=== PATIENT | female | born 1950 | race Caucasian/White ===

== ENCOUNTER 2018-03-14 08:58 | Observation (INO) | payer MEDICARE ==
[~2018-03-14] VITALS: Ht 165.1 cm; Wt 152.3 kg
[2018-03-14 10:30] LABS: BASOPHILS ABSOLUTE AUTO 0.03 K/mm3 (0.00-0.23); BASOPHILS PERCENT AUTO 1 % (0-2); EOSINOPHILS ABSOLUTE AUTO 0.08 K/mm3 (0.00-0.68); EOSINOPHILS PERCENT AUTO 2 % (0-6); Hematocrit 38.4 % (33.0-51.0); Hemoglobin 11.8 g/dL (11.5-16.0); IMMATURE GRAN ABSOLUTE AUTO 0.01 K/mm3 (0.00-0.10); IMMATURE GRAN PERCENT AUTO 0 % (0-1); LYMPHOCYTES ABSOLUTE AUTO 0.45 K/mm3 (0.84-5.20); LYMPHOCYTES PERCENT AUTO 12 % (21-46); MONOCYTES ABSOLUTE AUTO 0.44 K/mm3 (0.16-1.47); MONOCYTES PERCENT AUTO 11 % (4-13); Mean Corpuscular HGB 27.6 pg (26.0-34.0); Mean Corpuscular HGB Conc 30.7 g/dL (31.5-36.5); Mean Corpuscular Volume 90 fL (80-100); Mean Platelet Volume 11.3 fL (9.1-12.4); NEUTROPHILS PERCENT AUTO 74 % (41-73); Platelet Count 142 K/mm3 (150-400); RDW Coefficient Variation 18.6 % (11.7-14.2); RDW Standard Deviation 61.4 fL (35.1-46.3); Red Blood Cell Count 4.27 M/mm3 (3.80-5.20); White Blood Cell Count 3.91 K/mm3 (4.00-11.30)
[2018-03-14] MEDS ORDERED: LEVSOD125 PO (10:47)
[2018-03-14] MEDS ORDERED: BUPR100ER PO (10:47)
[2018-03-14] MEDS ORDERED: METO25ER PO (10:48)
[2018-03-14] MEDS ORDERED: FURO40 PO (10:48)
[2018-03-14] MEDS ORDERED: ALLO100 PO (10:48)
[2018-03-14] MEDS ORDERED: WARF2.5 PO (10:48)
[2018-03-14] MEDS ORDERED: SIMV40 PO (10:48)
[2018-03-14] MEDS ORDERED: FAMO20 PO (10:49)
[2018-03-14] MEDS ORDERED: HYDROCODON-ACE1 EAC3 PO (10:49)
[2018-03-14] MEDS ORDERED: K-Dur20 MEQ (10:49)
[2018-03-14 10:51] LABS: Albumin, Blood 3.3 g/dL (3.4-5.0); Albumin/Globulin Ratio 0.9 (0.8-1.8); Bilirubin, Total 1.3 mg/dL (0.1-1.0); Bun/Creatinine Ratio 19.2 (12.0-20.0); Calcium, Blood 9.4 mg/dL (8.5-10.1); Creatinine, Blood 1.77 mg/dL (0.40-1.00); Globulin, Blood 3.7 g/dL (2.2-4.0); Potassium, Blood 3.6 mmol/L (3.5-5.5)
[2018-03-14 11:07] LABS: International Normalized Ratio 2.4; Prothrombin Time Results 25.6 Sec (9.7-11.5)
[2018-03-14] MEDS ORDERED: Atrovent Inha12.9 GM INH (15:05)
[2018-03-14] MEDS ORDERED: Triamcinolone A15 G3 (15:19)
[2018-03-15 05:12] LABS: BASOPHILS ABSOLUTE AUTO 0.02 K/mm3 (0.00-0.23); BASOPHILS PERCENT AUTO 1 % (0-2); EOSINOPHILS ABSOLUTE AUTO 0.09 K/mm3 (0.00-0.68); EOSINOPHILS PERCENT AUTO 3 % (0-6); Hematocrit 35.5 % (33.0-51.0); Hemoglobin 10.8 g/dL (11.5-16.0); IMMATURE GRAN ABSOLUTE AUTO 0.01 K/mm3 (0.00-0.10); IMMATURE GRAN PERCENT AUTO 0 % (0-1); LYMPHOCYTES ABSOLUTE AUTO 0.63 K/mm3 (0.84-5.20); LYMPHOCYTES PERCENT AUTO 19 % (21-46); MONOCYTES ABSOLUTE AUTO 0.51 K/mm3 (0.16-1.47); MONOCYTES PERCENT AUTO 16 % (4-13); Mean Corpuscular HGB 27.6 pg (26.0-34.0); Mean Corpuscular HGB Conc 30.4 g/dL (31.5-36.5); Mean Corpuscular Volume 91 fL (80-100); Mean Platelet Volume 11.3 fL (9.1-12.4); NEUTROPHILS ABSOLUTE AUTO 1.98 K/mm3 (1.96-9.15); NEUTROPHILS PERCENT AUTO 61 % (41-73); Platelet Count 102 K/mm3 (150-400); RDW Coefficient Variation 18.5 % (11.7-14.2); RDW Standard Deviation 61.7 fL (35.1-46.3); Red Blood Cell Count 3.91 M/mm3 (3.80-5.20); White Blood Cell Count 3.24 K/mm3 (4.00-11.30)
[2018-03-15 05:24] LABS: Bun/Creatinine Ratio 18.1 (12.0-20.0); Calcium, Blood 9.1 mg/dL (8.5-10.1); Creatinine, Blood 1.66 mg/dL (0.40-1.00); Potassium, Blood 3.4 mmol/L (3.5-5.5)
[2018-03-15 05:30] LABS: International Normalized Ratio 2.35; Prothrombin Time Results 25.1 Sec (9.7-11.5)
[2018-03-16 05:15] LABS: Hematocrit 33.5 % (33.0-51.0); Hemoglobin 10.2 g/dL (11.5-16.0); Mean Corpuscular HGB 27.3 pg (26.0-34.0); Mean Corpuscular HGB Conc 30.4 g/dL (31.5-36.5); Mean Corpuscular Volume 90 fL (80-100); Mean Platelet Volume 11.7 fL (9.1-12.4); Platelet Count 106 K/mm3 (150-400); RDW Coefficient Variation 18.6 % (11.7-14.2); RDW Standard Deviation 60.1 fL (35.1-46.3); Red Blood Cell Count 3.73 M/mm3 (3.80-5.20); White Blood Cell Count 3.59 K/mm3 (4.00-11.30)
[2018-03-16 05:32] LABS: International Normalized Ratio 2.01; Prothrombin Time Results 21.4 Sec (9.7-11.5)
[2018-03-16 05:35] LABS: Bun/Creatinine Ratio 18.7 (12.0-20.0); Calcium, Blood 9.1 mg/dL (8.5-10.1); Creatinine, Blood 1.55 mg/dL (0.40-1.00); Potassium, Blood 3.6 mmol/L (3.5-5.5)
[2018-03-16] MEDS ORDERED: Augmentin 875-1 EACH PO (13:48)
== END 2018-03-16 14:23 | disposition home or self-care (01) ==
LOC: ER 08:58 → MEDS 08:59 → ER 14:20 → MEDS 14:20 → EDBEDREQ 14:40 → MEDS 14:48
PROVIDERS: Emergency Medicine; Internal Medicine; Physician Assistant
DX: A41.9 Sepsis, unspecified organism (principal); L03.116 Cellulitis of left lower limb; I25.10 Atherosclerotic heart disease of native coronary artery without angina pectoris; E87.6 Hypokalemia; I87.8 Other specified disorders of veins; E03.9 Hypothyroidism, unspecified; I12.9 Hypertensive chronic kidney disease with stage 1 through stage 4 chronic kidney disease, or unspecified chronic kidney disease; N18.3 Chronic kidney disease, stage 3 (moderate); E78.5 Hyperlipidemia, unspecified; I48.2 Chronic atrial fibrillation; M10.9 Gout, unspecified; Z95.1 Presence of aortocoronary bypass graft; Z79.01 Long term (current) use of anticoagulants; Z88.1 Allergy status to other antibiotic agents; Z88.8 Allergy status to other drugs, medicaments and biological substances; Z79.899 Other long term (current) drug therapy
CPT/HCPCS: 36415; 80048; 80053; 83605; 85025; 85027; 85610; 93005; 93010; 96361; 96365; 96366; 96374; 96375; 96376; 99285; G0378; J0295; J0690; J7030

== ENCOUNTER 2018-06-24 15:29 | Emergency (ER) | payer MEDICARE ==
[~2018-06-24] VITALS: Ht 165.1 cm; Wt 158.8 kg
[~2018-06-24 15:29] MED LIST: ALLO100 PO; Atrovent Inha12.9 GM INH; Augmentin 875-1 EACH PO; BUPR100ER PO; FAMO20 PO; FURO40 PO; HYDROCODON-ACE1 EAC3 PO; K-Dur20 MEQ PO; LEVSOD125 PO; METO25ER PO; SIMV40 PO; Triamcinolone A15 G3; WARF2.5 PO
[2018-06-24 16:07] LABS: Hematocrit 32.9 % (33.0-51.0); Hemoglobin 9.8 g/dL (11.5-16.0); Mean Corpuscular HGB 27.7 pg (26.0-34.0); Mean Corpuscular HGB Conc 29.8 g/dL (31.5-36.5); Mean Corpuscular Volume 93 fL (80-100); Mean Platelet Volume 10.4 fL (9.1-12.4); Platelet Count 183 K/mm3 (150-400); RDW Coefficient Variation 19.5 % (11.7-14.2); RDW Standard Deviation 65.8 fL (35.1-46.3); Red Blood Cell Count 3.54 M/mm3 (3.80-5.20)
[2018-06-24 16:26] LABS: Prothrombin Time Results 38.6 Sec (9.7-11.5)
[2018-06-24 16:27] LABS: BAND PERCENT MAN 1 % (0-8); BASOPHILS PERCENT MAN 0 % (0-2); EOSINOPHILS ABSOLUTE MAN 0.19 K/mm3 (0.00-0.68); EOSINOPHILS PERCENT MAN 4 % (0-6); LYMPHOCYTES ABSOLUTE MAN 0.58 K/mm3 (0.84-5.20); LYMPHOCYTES PERCENT MAN 12 % (21-46); MONOCYTES ABSOLUTE MAN 0.14 K/mm3 (0.16-1.47); MONOCYTES PERCENT MAN 3 % (4-13); NEUTROPHILS ABSOLUTE MAN 3.96 K/mm3 (1.96-9.15); SEG NEUTROPHILS PERCENT MAN 80 % (41-73); TOTAL CELLS COUNTED 100
[2018-06-24 16:29] LABS: Alanine Aminotransfer (ALT/SGP 20 U/L (12-78); Albumin, Blood 2.7 g/dL (3.4-5.0); Albumin/Globulin Ratio 0.6 (0.8-1.8); Alk Phos 192 U/L (50-136); Anion Gap 8 mmol/L (6-16); Aspartate Aminotrans (AST/SGOT 22 U/L (12-37); Bilirubin, Total 0.7 mg/dL (0.1-1.0); Blood Urea Nitrogen 42 mg/dL (8-24); CO2, Blood 30 mmol/L (21-32); Calcium, Blood 8.6 mg/dL (8.5-10.1); Chloride, Blood 102 mmol/L (98-108); Creatinine, Blood 1.83 mg/dL (0.40-1.00); Globulin, Blood 4.2 g/dL (2.2-4.0); Glomerular Filtration Rate 29 (60-); Glucose, Blood 116 mg/dL (70-99); Potassium, Blood 3.7 mmol/L (3.5-5.5); Sodium, Blood 140 mmol/L (136-145); Total Protein, Blood 6.9 g/dL (6.4-8.2); Troponin I <0.015 ng/mL (0.000-0.040)
[2018-06-24 16:36] LABS: International Normalized Ratio 4.06
== END 2018-06-24 19:38 | disposition home or self-care (01) ==
LOC: ER 15:29
PROVIDERS: Emergency Medicine
DX: L03.115 Cellulitis of right lower limb (principal); I25.2 Old myocardial infarction; I48.91 Unspecified atrial fibrillation; Z88.1 Allergy status to other antibiotic agents; Z88.8 Allergy status to other drugs, medicaments and biological substances; Z79.899 Other long term (current) drug therapy; Z79.01 Long term (current) use of anticoagulants
CPT/HCPCS: 36415; 71046; 80053; 83880; 84484; 85025; 85610; 93005; 93010; 96365; 96366; 99284-25; J3370; J7050

== ENCOUNTER 2018-06-26 08:56 | Emergency (ER) | payer MEDICARE ==
[~2018-06-26] VITALS: Ht 165.1 cm; Wt 154.2 kg
[2018-06-26 10:39] LABS: Vancomycin, Trough 19.5 ug/mL (5.0-10.0)
[2018-06-26 10:44] LABS: International Normalized Ratio 3.51; Prothrombin Time Results 33.7 Sec (9.7-11.5)
== END 2018-06-26 13:01 | disposition home or self-care (01) ==
LOC: ER 08:56
PROVIDERS: Physician Assistant
DX: L03.115 Cellulitis of right lower limb (principal); Z88.8 Allergy status to other drugs, medicaments and biological substances; Z88.1 Allergy status to other antibiotic agents; Z79.899 Other long term (current) drug therapy; Z79.01 Long term (current) use of anticoagulants; I25.2 Old myocardial infarction; I48.91 Unspecified atrial fibrillation
CPT/HCPCS: 80202; 82565; 85610; 96365; 96366; 99281-25; J3370; J7050

== ENCOUNTER 2018-06-27 09:12 | Emergency (ER) | payer MEDICARE ==
[~2018-06-27] VITALS: Ht 165.1 cm; Wt 153.3 kg
== END 2018-06-27 11:50 | disposition home or self-care (01) ==
LOC: ER 09:12
DX: L03.115 Cellulitis of right lower limb (principal); I25.2 Old myocardial infarction; I48.91 Unspecified atrial fibrillation; N18.3 Chronic kidney disease, stage 3 (moderate); Z88.8 Allergy status to other drugs, medicaments and biological substances; Z88.1 Allergy status to other antibiotic agents; Z79.899 Other long term (current) drug therapy; Z79.01 Long term (current) use of anticoagulants
CPT/HCPCS: 96365; 99281-25; J3370; J7050

== ENCOUNTER 2018-06-28 09:04 | Emergency (ER) | payer MEDICARE ==
[~2018-06-28] VITALS: Ht 165.1 cm; Wt 155.8 kg
[2018-06-28 10:21] LABS: International Normalized Ratio 3.25; Prothrombin Time Results 31.3 Sec (9.7-11.5)
[2018-06-28 10:40] LABS: Alanine Aminotransfer (ALT/SGP 21 U/L (12-78); Albumin, Blood 2.6 g/dL (3.4-5.0); Albumin/Globulin Ratio 0.6 (0.8-1.8); Alk Phos 180 U/L (50-136); Anion Gap 9 mmol/L (6-16); Aspartate Aminotrans (AST/SGOT 19 U/L (12-37); Bilirubin, Total 0.8 mg/dL (0.1-1.0); Blood Urea Nitrogen 32 mg/dL (8-24); Bun/Creatinine Ratio 18.7 (12.0-20.0); CO2, Blood 28 mmol/L (21-32); Calcium, Blood 8.4 mg/dL (8.5-10.1); Chloride, Blood 104 mmol/L (98-108); Creatinine, Blood 1.71 mg/dL (0.40-1.00); Glomerular Filtration Rate 31 (60-); Glucose, Blood 109 mg/dL (70-99); Potassium, Blood 3.7 mmol/L (3.5-5.5); Sodium, Blood 141 mmol/L (136-145); Total Protein, Blood 6.6 g/dL (6.4-8.2)
[2018-06-28 10:54] LABS: Vancomycin, Trough 25.8 ug/mL (5.0-10.0)
[2018-06-29] MEDS ORDERED: Cleocin HCl300 MG PO (11:09)
== END 2018-06-28 11:20 | disposition home or self-care (01) ==
LOC: ER 09:04
PROVIDERS: Physician Assistant
DX: L03.115 Cellulitis of right lower limb (principal); I25.2 Old myocardial infarction; I48.91 Unspecified atrial fibrillation; Z88.8 Allergy status to other drugs, medicaments and biological substances; Z88.1 Allergy status to other antibiotic agents; Z79.899 Other long term (current) drug therapy; Z79.01 Long term (current) use of anticoagulants
CPT/HCPCS: 36415; 80053; 80202; 85610; 99282; J3370; J7050

== ENCOUNTER 2018-06-29 10:22 | Emergency (ER) | payer MEDICARE ==
[~2018-06-29] VITALS: Ht 165.1 cm; Wt 153.3 kg
[2018-06-29] MEDS ORDERED: Cleocin HCl300 MG PO (11:09)
== END 2018-06-29 11:50 | disposition home or self-care (01) ==
LOC: ER 10:22
DX: L03.115 Cellulitis of right lower limb (principal); Z88.1 Allergy status to other antibiotic agents; Z88.8 Allergy status to other drugs, medicaments and biological substances; Z79.899 Other long term (current) drug therapy; Z79.01 Long term (current) use of anticoagulants; I25.2 Old myocardial infarction; I48.91 Unspecified atrial fibrillation
CPT/HCPCS: 99282